=== PATIENT | female | born 1965 | race Native Hawaiian/Other Pacific Islander ===

== ENCOUNTER → 2020-11-09 | Outpatient (CLI) | payer BC ==
--- NOTE | 2020-11-10 13:19 | MM ---
Reason for exam: screening (asymptomatic). Last mammogram was performed 8 years and 4 months ago. History: Family history of breast cancer in sister at age 59. Took hormonal contraceptives for 6 months beginning at age 40. Physical Findings: A clinical breast exam by your physician is recommended on an annual basis and results should be correlated with mammographic findings. MG Screening Mammo w CAD Bilateral CC and MLO view(s) were taken. Prior study comparison: July 02, 2012, bilateral digital screening mammo w/CAD. September 29, 2010, bilateral digital screening mammogram. The breast tissue is heterogeneously dense. This may lower the sensitivity of mammography. A couple areas of punctate calcification on the left do not clearly make a group at this time but are new/increased from 2012. 6 month follow up recommended. Grouped calcifications upper outer quadrant right breast, magnification views recommended. ASSESSMENT: Incomplete: need additional imaging evaluation, BI-RAD 0 RECOMMENDATION: Special view mammogram of the right breast. (Magnification views) [facility] will attempt to contact patient to return for supplemental views.
== END | disposition home or self-care (01) ==
LOC: RADMAMWWP 13:30
PROVIDERS: ATTEND Internal Medicine
DX: Z12.31 Encounter for screening mammogram for malignant neoplasm of breast (principal)
CPT/HCPCS: 77067

== ENCOUNTER → 2020-11-13 | Outpatient (CLI) | payer BC ==
--- NOTE | 2020-11-16 12:09 | MM ---
Reason for exam: additional evaluation requested from abnormal screening. Last mammogram was performed less than 1 month ago. History: Patient is postmenopausal. Family history of breast cancer in sister at age 59. Took hormonal contraceptives for 6 months beginning at age 40. Physical Findings: Nurse did not find any significant physical abnormalities on exam. MG 3D Work Up W/Cad RT CC with magnification, ML with magnification, and LM view(s) were taken of the right breast. Prior study comparison: November 09, 2020, bilateral MG screening mammo w CAD. July 02, 2012, bilateral digital screening mammo w/CAD. Finding: There is an indeterminate cluster of microcalcifications in the upper outer quadrant of the right breast. These results were verbally communicated with the patient and result sheet given to the patient on 11/13/20. ASSESSMENT: Suspicious, BI-RAD 4 RECOMMENDATION: Stereotactic core biopsy of the right breast. Called Dr. Agarwal's office with mammographic findings and has scheduled an appointment for the patient for 12/11/20 at 11:[address] Beltre. Biopsy scheduled for 12/18/20 at 8:00. PRELIMINARY REPORT CALLED AND FAXED TO DR. BELTRE ON 11/16/20.
== END | disposition home or self-care (01) ==
LOC: RADMAMWWP 14:26
PROVIDERS: ATTEND Internal Medicine
DX: R92.8 Other abnormal and inconclusive findings on diagnostic imaging of breast (principal)
CPT/HCPCS: 77061; 77065

== ENCOUNTER → 2020-12-11 | Outpatient (CLI) | payer BC ==
[2020-12-11 11:25] VITALS: BP 122/83; PULSE 83; RESP 16; TEMP 98.3
--- NOTE | 2020-12-11 11:54 | P.GSHP ---
History of Present Illness H&P Date: 12/11/20 Chief Complaint: abnormal mammogram Yudelka is a 55 year old female seen in consultation for Dr. Agarwal regarding a mammographic abnormality in the right breast. She had a bilateral mammogram which was screening done on . This was felt to be incomplete and additional views of the right breast was recommended. In the left breast there were 3 areas of calcification which did not seem to be grouped and could be followed closely. In the right breast there was an indeterminate cluster of microcalcifications in the upper outer quadrant. Stereotactic core biopsy was recommended. The patient does not feel any lumps masses or nodules of concern in either breast. The patient states that the left breast appears to have increased in size over the past several years relative to the right breast. She does have some intermittent discomfort in the left breast but not in the right breast. It feels achy at times in the outer quadrants of the breast but does not spread any place and only last for a short period of time. She is not complaining of any nipple discharge or skin changes. She has not had any recent trauma or infection in the breast. She has never had any biopsies or surgery of the breast. Caffeine: used to drink 4 bottles of mountain dew a day, now drinks one bottle of Mountain Dew and 2 cups of coffee per day nicotine: 7 cigarettes/day tyree-bromine: often, Snicker bar for breakfast Family history: brother: and of cancer/uncertain of the type that had bone involvement at the end sister: Breast cancer at 58 Hormonal History: menarche: 12 , breast fed: no, age at first : 17 menopause: ablation at 43 no periods since then, now starting to have hot flashes BCP: 1 year hormones: none Surgical history: tubal Medical History: hypothyroid DM anxiety disorder asthma arthritis Social History: Smoke: 7 cigarettes/day alcohol: occasional drugs: none/ CBD oil for sleeping - Constitutional Comment: hot flashes Constitutional: Denies chills, Denies fever - EENT Eyes: denies blurred vision, denies pain Ears: deny: decreased hearing, tinnitus Ears, nose, mouth and throat: Denies headache, Denies sore throat - Breasts Breasts: bilateral: as per HPI - Cardiovascular Cardiovascular: Denies chest pain, Denies shortness of breath - Respiratory Respiratory: Denies cough, Denies 7 - Gastrointestinal Gastrointestinal: Denies abdominal pain, Denies diarrhea, Denies nausea, Denies vomiting - Genitourinary (Female) Genitourinary: Denies dysuria, Denies hematuria - Menstruation Menstruation: Reports as per HPI - Musculoskeletal Musculoskeletal: Reports as per HPI - Integumentary Integumentary: Denies pruritus, Denies rash - Neurological Neurological: Reports numbness, Denies weakness - Psychiatric Psychiatric: Reports anxiety - Endocrine Comment: hypothyroid, diabetes - Hematologic/Lymphatic Comment: none - Allergic/Immunologic Allergic/Immunologic: Reports seasonal allergies Past Medical History Past Medical History: Asthma, Diabetes Mellitus, Hyperlipidemia, Hypertension, Osteoarthritis (OA), Thyroid Disorder History of Any Multi-Drug Resistant Organisms: None Reported Past Surgical History: Tubal Ligation Past Anesthesia/Blood Transfusion Reactions: No Reported Reaction Past Psychological History: No Psychological Hx Reported Smoking Status: Light tobacco smoker Past Alcohol Use History: Rare Additional Past Alcohol Use History / Comment(s): Started smoking at age 14 to current; 4-7 cigs/day Past Drug Use History: None Reported Additional Drug Use History / Comment(s): CBD oil occasional Medications and Allergies Home Medications Medication Instructions Recorded Confirmed Type Atorvastatin [Lipitor] 10 mg PO 12/11/20 12/11/20 History Diclofenac Sodium [Diclofenac 75 mg PO BID 12/11/20 12/11/20 History Sodium ER] Levothyroxine Sodium [Synthroid] 25 mcg PO QA 12/11/20 12/11/20 History Lisinopril [Zestril] 10 mg PO QAM 12/11/20 12/11/20 History Loratadine [Claritin] 10 mg PO [facility] 12/11/20 12/11/20 History Melatonin 5 mg PO 12/11/20 12/11/20 History Montelukast Sodium [Singulair] 10 mg PO 12/11/20 12/11/20 History Pantoprazole [Protonix] 40 mg PO QAM 12/11/20 12/11/20 History Venlafaxine HCl ER [Effexor Xr] 75 mg PO QAM 12/11/20 12/11/20 History metFORMIN HCL 500 mg PO BID 12/11/20 12/11/20 History Allergies Allergy/AdvReac Type Severity Reaction Status Date / Time No Known Allergies Allergy Unverified 12/11/20 11:09 Surgical - Exam Vital Signs Temp Pulse Resp BP Pulse Ox 98.3 F 83 16 122/83 99 12/11/20 11:18 12/11/20 11:18 12/11/20 11:18 12/11/20 11:18 12/11/20 11:18 BMI 32.5 - General well developed, well nourished, no distress - Eyes normal ocular movement - ENT normal pinna, normal nares - Neck no masses, trachea midline - Respiratory normal expansion, normal respiratory effort, clear to auscultation - Cardiovascular Rhythm: regular Heart Sounds: normal: S1, S2 - Abdomen Abdomen: soft, non tender, no guarding, no rigid, no rebound - Integumentary normal turgor - Neurologic no disoriented, no combative - Musculoskeletal normal gait - Psychiatric oriented to time, oriented to person, oriented to place, speech is normal, memory intact breast exam: BRA: 38D inspection bilateral grade 3 ptosis palpation: Right breast: Multi-positional exam fibrocystic changes, no dominant masses or nodules of concern Right axilla: No adenopathy of concern Left breast: Larger than right breast patient states 1 cup size, multiple positional exam fibrocystic changes, no dominant masses or nodules of concern Left axilla: No adenopathy of concern Results Mammogram independently reviewed with Dr. Reed from radiology Assessment and Plan Assessment: Impression: 1. Bilateral mammographic microcalcifications, right breast recommend stereo core biopsy, left breast depending on results of right breast, if right breast is atypical or positive then would recommend biopsy of left breast, if right breast is benign with follow left breast closely no longer than 6 months 2. Fibrocystic breast changes 3. Mastodynia intermittently left breast upper outer quadrant 4. Family history of cancer 5. Diabetes 6. Anxiety 7. Hypothyroidism 8. Arthritis Plan: 1. Stereotactic core biopsy right breast 2. Left breast depending on results of core biopsy of right breast if benign follow up in 6 months with mammogram if atypical or positive consider biopsy left breast 3. Encourage patient to stop smoking 4. Encourage patient to modify lifestyle with decreased caffeine intake 5. Medical management of medical conditions 6. Patient instructed to stop her nonsteroidals one week prior to the procedure The risks and benefits of this procedure were discussed with the patient. Alternatives such as watchful waiting or resection the operating room I discussed but not recommended. The patient and her daughter understand and they wish to proceed. Additionally discussed stopping smoking and decreasing/stopping caffeine intake which may decrease fibrocystic changes. She understands that she will consider this. Cc: Dr. Agarwal Encounter 50 minutes, time spent in reviewing medical records, physical exam, and counselling.
== END | disposition home or self-care (01) ==
LOC: WWCWWP 11:02
PROVIDERS: ATTEND Surgery
DX: N60.12 Diffuse cystic mastopathy of left breast (principal); N60.11 Diffuse cystic mastopathy of right breast; R92.0 Mammographic microcalcification found on diagnostic imaging of breast; N64.4 Mastodynia; E11.9 Type 2 diabetes mellitus without complications; J45.909 Unspecified asthma, uncomplicated; F41.9 Anxiety disorder, unspecified; E03.9 Hypothyroidism, unspecified; E07.9 Disorder of thyroid, unspecified; E78.5 Hyperlipidemia, unspecified; I10 Essential (primary) hypertension; F17.210 Nicotine dependence, cigarettes, uncomplicated; M19.90 Unspecified osteoarthritis, unspecified site; Z79.890 Hormone replacement therapy; Z79.899 Other long term (current) drug therapy; Z80.9 Family history of malignant neoplasm, unspecified

== ENCOUNTER → 2020-12-18 | Day surgery (SDC) | payer BC ==
[2020-12-18 07:29] VITALS: RESP 16
[2020-12-18 08:34] VITALS: BP 130/82; PULSE 83; TEMP 98.4
--- NOTE | 2020-12-18 09:44 | P.PCN ---
Date of Procedure: 12/18/20 Preoperative Diagnosis: Indeterminate cluster of microcalcifications upper outer quadrant of the right breast Postoperative Diagnosis: Same Procedure(s) Performed: Stereotactic core biopsy right breast Anesthesia: local Surgeon: Gabrielle Beltre Pathology: other (Breast tissue) Condition: stable Disposition: same day Indications for Procedure: Mammographic abnormality indeterminate microcalcifications upper outer quadrant right breast Operative Findings: Breast tissue showing microcalcifications on radiograph Description of Procedure: Patient is a 55-year-old white female who was noted to have indeterminate microcalcifications upper outer quadrant of the right breast on a mammogram of 11-13-20. The risks and benefits of the procedure were discussed with the patient. She understands and wishes to proceed. The patient was brought to the stereotactic core biopsy room. She was positioned on the l0-rad table. A bar gauger and lubricator tender film was obtained. A lateral to medial approach was utilized. The lesion was in the right breast in the upper outer qu adrant region. The lesion was identified. The lesion was targeted. The breast was prepped using Betadine. 20 mL of 1% lidocaine were used to anesthetize the area of concern. Vacuum-assisted core rotating 9 Guage Petit needle was driven to the correct coordinates. The needle was fired. A postoperative film was obtained. The needle was noted to be in the correct location. 24 specimens were obtained. Radiograph of the specimen revealed the area of concern had been adequately sampled. Calcifications were noted in the specimen. A tremor clip was left behind. The patient tolerated the procedure in stable condition. The patient will follow with Dr. Mattson next week. The specimen was sent to pathology.
--- NOTE | 2020-12-18 16:31 | MM ---
EXAMINATION TYPE: MG stereo VAD BX RT DATE OF EXAM: 12/18/2020 COMPARISON: NONE CLINICAL HISTORY: Abnormal mammogram TECHNIQUE: Stereotactic guided core biopsy of right breast. FINDINGS: Targeted was provided by radiology. The procedure was performed by surgery. Post procedure mammogram is obtained. Surgical clip is in the expected region of the calcifications. Specimen: Mammographic specimen demonstrates multiple calcifications within the specimen. IMPRESSION: 1. Successful stereotactic core biopsy right breast calcifications. Recommendations: 1. Recommendations are pending pathology results. Pathology Results: High Risk RIGHT BREAST, CORE BIOPSY: Hypocellular stromal fibrosis with focal microcalcification, focal fibrocystic change and columnar cell change, focal moderate usual ductal hyperplasia and focal sclerosing adenosis. Current specimen negative for diagnostic in situ or invasive carcinoma. Recommendation Surgical consult of the right breast. AARON
== END ==
LOC: RADMAMWWP 07:13
PROVIDERS: ATTEND Surgery
DX: N60.21 Fibroadenosis of right breast (principal); R92.0 Mammographic microcalcification found on diagnostic imaging of breast; N62 Hypertrophy of breast
CPT/HCPCS: 88305; 19081; A4648; J2001

== ENCOUNTER → 2020-12-25 | Outpatient (CLI) | payer BC ==
[2020-12-25 09:57] VITALS: BP 136/82; PULSE 122; RESP 18; TEMP 98.7
--- NOTE | 2020-12-25 10:08 | P.PN ---
Subjective Progress Note Date: 12/25/20 Principal diagnosis: Stereotactic core biopsy results right breast Yudelka is a 55-year-old female status post stereotactic core biopsy of the right breast and 3521. Pathology revealed hypocellular stromal fibrosis with focal microcalcification, focal fibrocystic change and columnar cell change, focal moderate usual ductal hyperplasia and focal sclerosing adenosis. The patient has no complaints related to the procedure. Objective - Vital Signs Vital signs: Vital Signs Temp 98.7 F 12/25/20 09:55 Pulse 122 H 12/25/20 09:55 Resp 18 12/25/20 09:55 BP 136/82 12/25/20 09:55 Pulse Ox 98 12/25/20 09:55 Intake & Output 12/24/20 12/25/20 12/25/20 18:59 06:59 18:59 Weight 78.018 kg - Exam BMI 32.5 - Constitutional General appearance: Present: cooperative - EENT Eyes: Present: EOMI ENT: Present: hearing grossly normal - Neck Neck: Present: normal ROM - Respiratory Respiratory: bilateral: CTA - Cardiovascular Rhythm: regular Heart sounds: normal: S1, S2 - Integumentary Integumentary Comment(s): Mild ecchymosis right breast biopsy site, no evidence of infection Integumentary: Present: normal turgor - Musculoskeletal Musculoskeletal: Present: gait normal - Psychiatric Psychiatric: Present: A&O x's 3, appropriate affect, intact judgment & insight Assessment and Plan Assessment: Impression: 1. Patient status post her tactic core biopsy right breast, pathology benign concordant Plan: 1. Repeat right breast mammogram in 6 months with physician exam at that time CC: Dr. Agarwal Encounter 10 minutes time spent reviewing medical records, physical examination, and counseling.
== END | disposition home or self-care (01) ==
LOC: WWCWWP 09:48
PROVIDERS: ATTEND Surgery
DX: L76.32 Postprocedural hematoma of skin and subcutaneous tissue following other procedure (principal); Z98.890 Other specified postprocedural states

== ENCOUNTER → 2023-01-13 | Outpatient (CLI) | payer BC ==
--- NOTE | 2023-01-13 13:54 | CA ---
Exercise Stress Test Report Name: Yudelka Payan Exam Date: 01/13/2023 09:03 Exam Location: [place] Stress Ht (in): 61 Wt (lb): 170 BSA: 1.76 Ordering Phys: Jin Champagne MD Referring Phys: JIN CHAMPAGNE,, Technologist: Omero Lin Age: 57 Gender: F : 1965 Procedure CPT: Indications: R07.9 CHEST PAIN ICD-10 Codes: Patient History: Medications: WELBUTRIN, METFORMIN, LIPITOR, MELATONIN, CHLARITIN, PREVASIN Meds past 24 hrs: Pretest Chest Pain: STRESS TEST [place] Protocol Exercise Duration (min:sec): 06:[address] Depressions (mm): Angina Score: Nova Score: Resting HR (bpm): 77 Peak HR (bpm): 149 Resting BP (mmHg): 135 / 92 Peak BP (mmHg): 178 / 94 MPHR: 164 Target HR: 139 % MPHR: 91 METS: 8.0 Total Dose: Peak Dose: Atropine: Double Product: 41107 BP Response: Stress Termination: Reached target heart rate Stress Symptoms: NO SYMPTOMS Stress Summary: ECG ANALYSIS Resting ECG: Stress ECG: CONCLUSIONS Patient underwent exercise stress EKG with a [place] protocol treadmill stress test. Patient exercised into Stage 2 for a total of 6 minutes and 35 seconds reaching a total of 8.0 METS. Patient's maximum heart rate was 149 which represented 90% age- predicted maximum heart rate. Stress EKG findings: At baseline patient's EKG showed normal sinus rhythm, normal axis, no significant ST or T wave abnormalities. At peak exercise, EKG showed significant change from baseline. Conclusions: 1. Normal EKG response to exercise without evidence of inducible ischemia. 2. Fair exercise capacity. Dr. Florian Mcclellan DO (Electronically Signed) Final Date: 13 January 2023 13:53
== END | disposition home or self-care (01) ==
LOC: RADNMMAIN 08:30
PROVIDERS: ATTEND Family Medicine
DX: R07.9 Chest pain, unspecified (principal)
CPT/HCPCS: 93017

== ENCOUNTER → 2025-02-21 | Outpatient (CLI) | payer BC ==
[2025-02-21 15:35] LABS: African American GFR (CKD) >90 (>60 ml/min/1.73 sqM); Blood Urea Nitrogen 11 mg/dL (7-17); Non-African American GFR(CKD) >90 (>60 ml/min/1.73 sqM)
--- NOTE | 2025-02-21 17:51 | CT ---
EXAMINATION TYPE: CT chest w con DATE OF EXAM: 02/21/2025 4:46 PM COMPARISON: None available. CLINICAL INDICATION: Female, 59 years old with history of R91.8 ABN FIND OF LUNG FIELD R05.9 COUGH; P HH, abnormal lung field findings, cough TECHNIQUE: Multiple axial images were obtained through the chest. Sagittal and coronal reformats were created for review. MIP was performed on a separate workstation. Contrast used:100 ml mL of Isovue 300 with IV Contrast (None if empty) CT DLP: 428 mGycm, Automated exposure control for dose reduction was used. FINDINGS: LUNGS/ PLEURA: 6 mm calcified granuloma in the right lower lobe. No acute focal consolidation. No ple ural effusion or pneumothorax. AIRWAY: Patent and unremarkable. HEART: Size within normal limits. MEDIASTINUM: No gross evidence of adenopathy. VASCULATURE: No aortic aneurysm. MUSCULOSKELETAL: No acute osseous abnormalities SOFT TISSUES/LYMPH NODES: Unremarkable. LOWER NECK: No significant findings. UPPER ABDOMEN: Cholelithiasis with large lamellated gallstone partially visualized. IMPRESSION: 1. No acute abnormality in the chest. 2. Benign 6 mm calcified granuloma in the right lower lobe. 3. Cholelithiasis with large lamellated gallstone partially visualized. [facility], , 02/21/2025 5:49 PM
== END | disposition home or self-care (01) ==
LOC: RADCTMAIN 14:42
PROVIDERS: ATTEND Family Medicine
DX: K80.20 Calculus of gallbladder without cholecystitis without obstruction (principal); R91.8 Other nonspecific abnormal finding of lung field; J84.10 Pulmonary fibrosis, unspecified
CPT/HCPCS: 82565; 84520; 71260; 36415; Q9967